=== PATIENT | female | born 1995 | race Two or more races ===

== ENCOUNTER 2019-12-16 21:00 | Inpatient (IN) | payer MEDICAID ==
[~2019-12-16] VITALS: Ht 154.9 cm; Wt 78.5 kg
[2019-12-16] MEDS ORDERED: LACTATED RINGERS 1,000 ML IV SCH (22:15)
[2019-12-16 22:57] LABS: BASOPHILS % 0.2 % (0.0-2.0); EOSINOPHILS % 0.4 % (0.0-5.0); HEMATOCRIT. 38.8 % (36.0-48.0); HEMOGLOBIN. 13.6 g/dL (12.0-16.0); LYMPHOCYTES % 25.2 % (20.0-50.0); MEAN CORPUSCULAR HEMOGLOBIN 32.3 pg (28.0-32.0); MEAN CORPUSCULAR VOLUME 92.4 fL (81.0-99.0); MEAN PLATELET VOLUME 8.6 fl (7.4-10.4); MONOCYTES % 10.3 % (2.0-8.0); NEUTROPHILS % 63.9 % (40.0-76.0); PLATELET 234 x1000/uL (130-400); RED CELL DISTRIBUTION WIDTH 15.2 % (11.6-14.6)
[2019-12-16 23:01] LABS: INR 0.9; PARTIAL THROMBOPLASTIN TIME 25.9 sec (23.4-31.0)
[2019-12-17] MEDS ORDERED: FENTANYL CITRATE/PF 50MCG/ML 2ML VIAL ONE (00:13)
[2019-12-17] MEDS ORDERED: BUPIVACAINE HCL/PF 0.25% (2.5MG/ML) 10ML ONE (00:13)
[2019-12-17] MEDS ORDERED: SODIUM CHLORIDE 0.9% 10ML VIAL ONE (00:14)
[2019-12-17] MEDS ORDERED: EPHEDRINE SULFATE 50MG/ML VIAL ONE (00:14)
[2019-12-17] MEDS ORDERED: ROPIVACAINE HCL 2MG/ML (0.2%) 200ML BOTTLE IR ONE (00:30)
[2019-12-17] MEDS ORDERED: ROPIVACAINE HCL/PF EPIDURAL 200 ML EPI ONE (01:03)
[2019-12-17] MEDS ORDERED: DEXT 5%/LR + PITOCIN 20UNITS/L 1,000 ML IV ONE (05:30)
[2019-12-17] MEDS ORDERED: DEXT 5%/LR + PITOCIN 20UNITS/L 1,000 ML IV SCH ×2 (10:57→11:49)
[2019-12-17] MEDS ORDERED: LIDOCAINE HCL 1% 20ML VIAL (Pyxis) INJ INFIL SCH (11:00)
[2019-12-17] MEDS ORDERED: NALOXONE HCL 0.4 MG/ML 1ML VIAL IM PRN (11:00)
[2019-12-17] MEDS ORDERED: METHYLERGONOVINE MALEATE 0.2 MG/ML IM PRN (11:00)
[2019-12-17] MEDS ORDERED: CARBOPROST TROMETHAMINE 250 MCG/ML AMPUL IM PRN (11:00)
[2019-12-17] MEDS ORDERED: BENZOCAINE/LANOLIN/ALOE VERA SPRAY TOP PRN (12:00)
[2019-12-17] MEDS ORDERED: IBUPROFEN 400MG TABLET PO PRN (12:00)
[2019-12-17] MEDS ORDERED: RHO(D) IMMUNE GLOBULIN 300 MCG/SYR IM PRN (12:00)
[2019-12-17] MEDS ORDERED: BUTORPHANOL TARTRATE 2 MG/ML VIAL IV PRN (12:30)
[2019-12-17 14:20] VITALS: BP 138/78
[2019-12-17 14:50] VITALS: BP 130/70
[2019-12-17] MEDS: IBUPROFEN 800MG TABLET PO PRN ×2 (16:02→22:26)
[2019-12-17 19:20] VITALS: BP 99/50
[2019-12-17 23:45] VITALS: BP 134/66
[2019-12-18] MEDS: IBUPROFEN 800MG TABLET PO PRN ×3 (05:03→21:37)
[2019-12-18 07:07] LABS: BASOPHILS % 0.4 % (0.0-2.0); EOSINOPHILS % 0.3 % (0.0-5.0); HEMATOCRIT. 35.4 % (36.0-48.0); HEMOGLOBIN. 12.1 g/dL (12.0-16.0); LYMPHOCYTES % 18.5 % (20.0-50.0); MEAN CORPUSCULAR HEMOGLOBIN 31.5 pg (28.0-32.0); MEAN CORPUSCULAR VOLUME 92.1 fL (81.0-99.0); MEAN PLATELET VOLUME 8.5 fl (7.4-10.4); MONOCYTES % 12.7 % (2.0-8.0); NEUTROPHILS % 68.1 % (40.0-76.0); PLATELET 174 x1000/uL (130-400); RED BLOOD CELL COUNT 3.85 mill/uL (4.2-5.4); RED CELL DISTRIBUTION WIDTH 15.4 % (11.6-14.6)
[2019-12-18 07:31] VITALS: BP 113/51
[2019-12-18] MEDS ORDERED: INFLUENZA VIRUS VACCINE(AFLURIA) 0.5ML SYR IM ONE (12:00)
[2019-12-18] MEDS ORDERED: TETANUS, DIPHTHERIA, PERTUSSIS VAC/PF 0.5ML (>7YR OLD) IM ONE (12:00)
[2019-12-18 16:08] VITALS: BP 117/71
[2019-12-18 20:00] VITALS: BP 118/72
[2019-12-19] VITALS: BP 116/70
[2019-12-19] MEDS ORDERED: IBUP-2030 PO (07:00)
[2019-12-19 08:00] VITALS: BP 104/63
[2019-12-23 16:01] LABS: HEPATITIS B SURFACE ANTIGEN NEGATIVE
== END 2019-12-19 11:37 | disposition home or self-care (01) | DRG 560 ==
LOC: 8 EST LDRP 21:00 → OBSVTOIN 21:00 → 8EST 12-17 13:55
PROVIDERS: ADMIT Obstetrics & Gynecology; ATTEND Obstetrics & Gynecology
PROC: 10E0XZZ Delivery of Products of Conception, External Approach (ICD-10-PCS; principal; 2019-12-17)
PROC: 0KQM0ZZ Repair Perineum Muscle, Open Approach (ICD-10-PCS; 2019-12-17)
PROC: 00HU33Z Insertion of Infusion Device into Spinal Canal, Percutaneous Approach (ICD-10-PCS; 2019-12-17)
PROC: 3E0R3BZ Introduction of Anesthetic Agent into Spinal Canal, Percutaneous Approach (ICD-10-PCS; 2019-12-17)
DX: O70.1 Second degree perineal laceration during delivery (principal); Z37.0 Single live birth; Z82.49 Family history of ischemic heart disease and other diseases of the circulatory system; Z3A.38 38 weeks gestation of pregnancy; Z83.3 Family history of diabetes mellitus
CPT/HCPCS: 36415; 85025; 86592; 86703; 86762; 86850; 86900; 87340; 90686; 90715; 99281; G0378; J0595; J2590; J2795; J3010; J3490; J7120

== ENCOUNTER 2021-09-19 07:42 | Day surgery (SDC) | payer MEDICAID ==
[~2021-09-19] VITALS: Ht 154.9 cm; Wt 60.0 kg
[2021-09-19] MEDS ORDERED: IBUP-2741 PO (07:49)
[2021-09-19] MEDS ORDERED: ONDANSETRON HCL 4MG/2ML INJ IV STA (12:12)
[2021-09-19] MEDS ORDERED: MORPHINE SULFATE 4 MG/ML CPJ (NOT FOR IM USE) IV STA (12:12)
[2021-09-19] MEDS ORDERED: SODIUM CHLORIDE 0.9% 1,000 ML IV ONE (12:15)
[2021-09-19 12:36] LABS: CLARITY URINE CLEAR (CLEAR); COLOR URINE YELLOW (YELLOW); KETONES URINE 3+ (NEGATIVE); LEUKOCYTE ESTERASE URINE NEGATIVE (NEGATIVE); NITRITE URINE NEGATIVE (NEGATIVE); OCCULT BLOOD URINE TRACE (NEGATIVE); PROTEIN URINE NEGATIVE (NEGATIVE); SPECIFIC GRAVITY URINE 1.027 (1.005-1.030); UROBILINOGEN URINE 0.2 E.U./dL (0.2-1.0)
[2021-09-19 12:58] LABS: HEMATOCRIT. 40.4 % (36.0-48.0); HEMOGLOBIN. 13.5 g/dL (12.0-16.0); MEAN CORPUSCULAR HEMOGLOBIN 29.7 pg (28.0-32.0); MEAN CORPUSCULAR VOLUME 88.6 fL (81.0-99.0); PLATELET 276 x1000/uL (130-400); RED BLOOD CELL COUNT 4.56 mill/uL (4.2-5.4)
[2021-09-19 13:04] LABS: CHLORIDE 107 mEq/L (98-107)
[2021-09-19 13:18] LABS: B-HCG QUANTITATIVE < 1 mIU/mL (<3)
[2021-09-19 13:37] LABS: PLATELET ESTIMATE NORMAL
[2021-09-19] MEDS ORDERED: METRONIDAZOLE 500 MG PREMIX 100 ML IV ONE (15:45)
[2021-09-19] MEDS ORDERED: CEFTRIAXONE 1 G PREMIX 50 ML IV ONE (15:45)
[2021-09-19] MEDS ORDERED: MORPHINE SULFATE 4 MG/ML CPJ (NOT FOR IM USE) IV ONE (16:15)
[2021-09-19] MEDS ORDERED: ONDANSETRON HCL 4MG/2ML INJ IV ONE (16:15)
[2021-09-19] MEDS ORDERED: BUPIVACAINE HCL/PF 0.5% (5MG/ML) 10ML ONE (16:22)
[2021-09-19] MEDS ORDERED: POLYMYXIN B SULFATE 500000 UNITS/VIAL ONE (16:22)
[2021-09-19] MEDS ORDERED: SKIN ADHESIVE 0.7 GM EA TOP ONE (16:22)
[2021-09-19] MEDS ORDERED: IOHEXOL-300 100 ML BOTTLE ONE (16:24)
[2021-09-19 17:00] VITALS: BP 107/57
[2021-09-19] MEDS ORDERED: FENTANYL CITRATE/PF 50MCG/ML 2ML VIAL ONE (18:29)
[2021-09-19] MEDS ORDERED: PROPOFOL 200MG/20ML VIAL IV ONE (18:29)
[2021-09-19] MEDS ORDERED: ONDANSETRON HCL 4MG/2ML INJ IV PRN ×2 (18:30→18:45)
[2021-09-19] MEDS ORDERED: MIDAZOLAM HCL 2 MG/2 ML VIAL ONE (18:30)
[2021-09-19] MEDS ORDERED: HYDROCODONE/ACETAMINOPHEN 5/325MG TABLET PO PRN ×2 (18:30)
[2021-09-19] MEDS ORDERED: MORPHINE SULFATE 2 MG/ML CPJ (NOT FOR IM USE) IV PRN ×2 (18:30)
[2021-09-19] MEDS ORDERED: ONDANSETRON HCL 4MG/2ML INJ ONE (18:37)
[2021-09-19] MEDS ORDERED: DEXAMETHASONE 4MG/ML 1ML VIAL ONE (18:37)
[2021-09-19] MEDS ORDERED: HYDROMORPHONE HCL/PF 2MG/ML CPJ IV PRN (18:45)
[2021-09-19] MEDS ORDERED: MEPERIDINE HCL/PF 25MG/ML CPJ IV PRN (18:45)
[2021-09-19] MEDS ORDERED: LABETALOL 5MG/ML SYR 20 MG/4 ML SYRINGE IV PRN (18:45)
[2021-09-19] MEDS ORDERED: NALOXONE HCL 0.4MG/ML VIAL IV PRN (18:45)
[2021-09-19] MEDS ORDERED: DEXT 5%/0.45% NACL KCL 20MEQ/L 1,000 ML IV SCH (20:00)
[2021-09-19] MEDS ORDERED: SODIUM CHLORIDE 0.9% INJ 3ML FLUSH IVF SCH (22:00)
== END 2021-09-19 20:30 | disposition home or self-care (01) ==
LOC: ER 07:42 → EDBEDREQSVC 15:51 → EDBEDREQTM 15:51 → EDBEDREQ 15:54 → OR 18:30 → ENRESERV 20:27 → OR 20:30 → CANBEDREQ 09-20 02:15
PROVIDERS: ATTEND Surgery
DX: K37 Unspecified appendicitis (principal); R10.9 Unspecified abdominal pain; Z20.822 Contact with and (suspected) exposure to COVID-19; Z98.890 Other specified postprocedural states
CPT/HCPCS: 36415; 44970; 74177; 80053; 81003; 83690; 84702; 85025; 87426; 88304; 99285; J0696; J1100; J2250; J2270; J2405; J2704; J3010; J3490; J7030; Q9967